=== PATIENT | male | born 1965 | race Caucasian/White ===

== ENCOUNTER 2024-03-15 14:34 | Emergency (ER) | payer OTHER, SELFPAY ==
[~2024-03-15] VITALS: Ht 167.6 cm; Wt 79.5 kg
[2024-03-15] MEDS: LIDOCAINE 1% MDV 20ML VIAL SC ONE (16:30)
[2024-03-15] MEDS ORDERED: CEPH500T PO (17:24)
[2024-03-15] MEDS: CEPHALEXIN 500 MG CAP PO ONE (17:32)
[2024-03-15 17:37] VITALS: BP 168/84; TEMP 97.9; O2SAT 100
== END 2024-03-15 17:45 | disposition home or self-care (01) ==
LOC: M ED 14:34
DX: S63.284A Dislocation of proximal interphalangeal joint of right ring finger, initial encounter (principal); S62.634A Displaced fracture of distal phalanx of right ring finger, initial encounter for closed fracture; F10.10 Alcohol abuse, uncomplicated; Z85.038 Personal history of other malignant neoplasm of large intestine; Y93.63 Activity, rugby; Y92.9 Unspecified place or not applicable; Y99.9 Unspecified external cause status; Z79.2 Long term (current) use of antibiotics
CPT/HCPCS: 26785; 71046; 73130; 93005; 99284; J0665